=== PATIENT | male | born 1950 | race Caucasian/White ===

== ENCOUNTER 2023-04-02 06:21 | Inpatient (IN) | payer MEDICARE ==
[~2023-04-02] VITALS: Ht 177.8 cm; Wt 77.5 kg
[~2023-04-02 06:21] MED LIST: LISI20TA37 PO; LR 1,000 ML IV SCH; ceFAZolin SOD 2 GM in IV 1 EA IV ONE
[2023-04-02] MEDS ORDERED: HEPARIN SOD (PORCINE) 5000UNITS/ML 1ML VIAL/SYRINGE SQ ONE (07:10)
[2023-04-02] MEDS ORDERED: LIDOCAINE 1% SDV 30ML VIAL As Ordered ONE (07:37)
[2023-04-02] MEDS ORDERED: ONDANSETRON 4MG 2ML VIAL IV PRN ×2 (08:55→12:45)
[2023-04-02] MEDS ORDERED: PERCOCET 5MG/325MG TAB PO PRN ×2 (08:55)
[2023-04-02] MEDS ORDERED: ACETAMINOPHEN TAB 650MG DOSE (2X325MG) PO PRN (08:55)
[2023-04-02] MEDS ORDERED: MIDAZOLAM INJ 2MG/2ML VIAL As Ordered ONE (09:35)
[2023-04-02] MEDS ORDERED: LIDOCAINE 2% 100MG/5ML SDV (FOR ANES.) As Ordered ONE (09:35)
[2023-04-02] MEDS ORDERED: fentaNYL 100 MCG/2 ML INJECTION As Ordered ONE (09:35)
[2023-04-02] MEDS ORDERED: propofoL 200 MG/20 ML VIAL As Ordered ONE (09:35)
[2023-04-02] MEDS ORDERED: ACETAMINOPHEN 1000MG 100ML IV BAG As Ordered ONE (09:35)
[2023-04-02] MEDS ORDERED: ROCURONIUM BROMIDE 50MG/5ML VIAL As Ordered ONE (09:35)
[2023-04-02] MEDS ORDERED: HYDROmorphone HCL 2MG/ML 1ML VIAL As Ordered ONE (09:37)
[2023-04-02] MEDS ORDERED: ONDANSETRON 4MG 2ML VIAL As Ordered ONE (10:16)
[2023-04-02] MEDS ORDERED: SUGAMMADEX SODIUM 500 MG/5 ML VIAL (BRIDION) As Ordered ONE (10:17)
[2023-04-02] MEDS ORDERED: DESFLURANE 240 ML INHALANT As Ordered ONE (12:32)
[2023-04-02] MEDS ORDERED: LR 1,000 ML IV SCH (12:45)
[2023-04-02] MEDS ORDERED: oxyCODONE 5MG TAB PO PRN (12:45)
[2023-04-02] MEDS ORDERED: fentaNYL 100 MCG/2 ML INJECTION IV PRN (12:45)
[2023-04-02] MEDS: MEPERIDINE 25 MG/ML 1ML VIAL IV PRN ×2 (13:24→13:30)
[2023-04-02] MEDS: HYDROMORPHONE HCL 0.5 MG/ 0.5 ML SYRINGE IV PRN ×2 (13:25→13:31)
[2023-04-02 13:40] LABS: HEMATOCRIT 41.5 % (42.0-52.0); HEMOGLOBIN 14.4 g/dl (13.5-17.5); MEAN CORPUSCULAR HEMOGLOBIN 31.2 pg (27.0-33.0); MEAN CORPUSCULAR HGB CONC 34.7 g/dl (32.0-36.5); PLATELET COUNT, AUTOMATED 327 10^3/uL (150-450); RED BLOOD COUNT 4.61 10^6/uL (4.30-6.10); WHITE BLOOD COUNT 11.7 10^3/uL (4.0-10.0)
[2023-04-02 14:03] LABS: CALCIUM LEVEL 8.4 MG/DL (8.3-10.6); CREATININE FOR GFR 1.53 MG/DL (0.70-1.30); GLOMERULAR FILTRATION RATE 47.7 (>42); POTASSIUM SERUM 4.2 MMOL/L (3.5-5.1)
[2023-04-02 15:10] VITALS: BP 133/85; TEMP 97.3; O2SAT 97
[2023-04-02] MEDS: NS 1,000 ML IV SCH ×2 (15:11→20:53)
[2023-04-02 15:40] VITALS: BP 144/85; TEMP 96.8; O2SAT 97
[2023-04-02 16:10] VITALS: BP 123/66; TEMP 97.3; O2SAT 97
[2023-04-02 17:00] VITALS: BP 122/66; TEMP 97.7; O2SAT 98
[2023-04-02] MEDS: ceFAZolin SOD 1 GM in D5W MINI-BAG PLUS 50 ML IV SCH (17:30)
[2023-04-02 18:00] VITALS: BP 139/88; TEMP 97.2; O2SAT 96
[2023-04-02 19:00] VITALS: BP 142/85; TEMP 97.5; O2SAT 98
[2023-04-02] MEDS: DOCUSATE SODIUM 100MG CAPSULE PO SCH (20:53)
[2023-04-02] MEDS: HEPARIN SOD (PORCINE) 5000UNITS/ML 1ML VIAL/SYRINGE SC SCH (21:14)
[2023-04-03] VITALS: BP 130/86; TEMP 98.1; O2SAT 99
[2023-04-03] MEDS: ceFAZolin SOD 1 GM in D5W MINI-BAG PLUS 50 ML IV SCH (01:15)
[2023-04-03 04:00] VITALS: BP 133/78; TEMP 98.2; O2SAT 97
[2023-04-03] MEDS: HEPARIN SOD (PORCINE) 5000UNITS/ML 1ML VIAL/SYRINGE SC SCH ×2 (05:44→14:00)
[2023-04-03 06:45] LABS: HEMATOCRIT 35.8 % (42.0-52.0); HEMOGLOBIN 12.5 g/dl (13.5-17.5); MEAN CORPUSCULAR HEMOGLOBIN 31.3 pg (27.0-33.0); MEAN CORPUSCULAR HGB CONC 34.9 g/dl (32.0-36.5); MEAN CORPUSCULAR VOLUME 89.7 fl (80.0-96.0); PLATELET COUNT, AUTOMATED 253 10^3/uL (150-450); RED BLOOD COUNT 3.99 10^6/uL (4.30-6.10); WHITE BLOOD COUNT 9.3 10^3/uL (4.0-10.0)
[2023-04-03 06:56] LABS: CALCIUM LEVEL 8.1 MG/DL (8.3-10.6); CREATININE FOR GFR 1.4 MG/DL (0.70-1.30); GLOMERULAR FILTRATION RATE 52.9 (>42); POTASSIUM SERUM 3.9 MMOL/L (3.5-5.1)
[2023-04-03] MEDS: DOCUSATE SODIUM 100MG CAPSULE PO SCH (08:41)
[2023-04-03 08:42] VITALS: BP 153/68
[2023-04-03 10:00] VITALS: BP 146/80; TEMP 97.9; O2SAT 94
[2023-04-03 14:00] VITALS: BP 144/78; TEMP 98; O2SAT 95
[2023-04-03] MEDS ORDERED: CIPR-249 PO (14:18)
[2023-04-03] MEDS ORDERED: COLA100C5 PO (14:18)
[2023-04-03] MEDS ORDERED: PERCOCET PO (14:18)
== END 2023-04-03 16:12 | disposition home or self-care (01) | DRG 708 ==
LOC: M OR 06:21 → M MSPAV 15:06
PROVIDERS: ADMIT Urology; ATTEND Urology
PROC: 07TC4ZZ Resection of Pelvis Lymphatic, Percutaneous Endoscopic Approach (ICD-10-PCS; 2023-04-02)
PROC: 8E0W4CZ Robotic Assisted Procedure of Trunk Region, Percutaneous Endoscopic Approach (ICD-10-PCS; 2023-04-02)
PROC: 0VT04ZZ Resection of Prostate, Percutaneous Endoscopic Approach (ICD-10-PCS; principal; 2023-04-02 07:30)
DX: C61 Malignant neoplasm of prostate (principal); I10 Essential (primary) hypertension; Z20.822 Contact with and (suspected) exposure to COVID-19; Z79.899 Other long term (current) drug therapy